=== PATIENT | male | born 1960 | race Hispanic/Latino ===

== ENCOUNTER 2019-02-14 00:31 | Inpatient (IN) | payer BC, OTHER ==
[2019-02-14] MEDS ORDERED: Nitroglycerin 0.4 MG TAB 1 EACH ONE (00:51)
[2019-02-14 01:08] LABS: #Basophils 0.2 thou/uL (0.0-0.2); #Eosinphils 0.1 thou/uL (0.0-0.7); #Monocytes 0.8 thou/uL (0.11-0.59); #Neutrophils 4.1 thou/uL (1.40-6.50); %Basophils 2.1 % (0.0-1.0); %Eosinophils 1.3 % (0.0-10.0); %Lymphocytes 36.9 % (21.0-51.0); %Monocytes 9.6 % (0.0-10.0); %Neutrophils 50.1 % (42.0-75.0); Hemoglobin 15.1 g/dL (14.0-18.0); Mean Corpuscular HGB CONC 34.1 g/dL (32.0-36.0); Mean Corpuscular Hemoglobin 33.4 pg (27.0-31.0); Mean Platelet Volume 7.6 fL (7.4-10.4); Platelet Count 235 thou/uL (130-400); Red Blood Cell (RBC) Count 4.52 mill/uL (4.70-6.10); White Blood Cell (WBC) Count 8.1 thou/uL (4.8-10.8)
[2019-02-14] MEDS ORDERED: Aspirin 325 MG TAB ONE (01:14)
[2019-02-14 02:02] LABS: Albumin 4.5 g/dL (3.5-5.0)
[2019-02-14 02:03] LABS: Chloride 103 mmol/L (98-107); Potassium 3.5 mmol/L (3.5-5.1); Sodium 140 mmol/L (136-145)
[2019-02-14 02:04] LABS: Calcium 9.9 mg/dL (7.8-10.44); Globulin 3.2 g/dL (2.4-3.5); Glucose 146 mg/dL (70-105); Protein, Total 7.7 g/dL (6.0-8.3)
[2019-02-14 02:06] LABS: Anion Gap 15 mmol/L (10-20); Bilirubin, Total 0.5 mg/dL (0.2-1.2); Carbon Dioxide 26 mmol/L (22-29)
[2019-02-14 02:07] LABS: Alkaline Phosphatase 90 U/L (40-150)
[2019-02-14 02:08] LABS: Calc. Creatinine Clearance 0 mL/min (70-130); Estimated GFR-MDRD 78
[2019-02-14 02:09] LABS: AST (SGOT) 38 U/L (5-34); BUN (Urea Nitrogen) 18 mg/dL (8.4-25.7)
[2019-02-14 02:10] LABS: ALT (SGPT) 84 U/L (8-55); CK (CPK) 222 U/L (30-200); Lipase 74 U/L (8-78)
[2019-02-14] MEDS ORDERED: Nitroglycerin 2% Ointment 1 INCH/1 GM Packet ONE (02:10)
[2019-02-14] MEDS ORDERED: Acetaminophen 325 MG TAB PO PRN (03:22)
[2019-02-14] MEDS ORDERED: Ondansetron ODT 4 MG TAB PO PRN (03:22)
[2019-02-14] MEDS ORDERED: Ondansetron PF 4 MG/2 ML Vial IVP PRN (03:22)
[2019-02-14 05:20] LABS: #Basophils 0.1 thou/uL (0.0-0.2); #Eosinphils 0.2 thou/uL (0.0-0.7); #Lymphocytes 2.9 thou/uL (1.20-3.40); #Monocytes 0.7 thou/uL (0.11-0.59); #Neutrophils 3.2 thou/uL (1.40-6.50); %Eosinophils 2.8 % (0.0-10.0); %Lymphocytes 40.7 % (21.0-51.0); %Monocytes 10.4 % (0.0-10.0); %Neutrophils 45.2 % (42.0-75.0); Hemoglobin 13.1 g/dL (14.0-18.0); Mean Corpuscular HGB CONC 33.2 g/dL (32.0-36.0); Mean Corpuscular Hemoglobin 33.2 pg (27.0-31.0); Mean Platelet Volume 7.8 fL (7.4-10.4); Platelet Count 196 thou/uL (130-400); RBC Distribution Width 11.1 % (11.5-14.5); Red Blood Cell (RBC) Count 3.95 mill/uL (4.70-6.10); White Blood Cell (WBC) Count 7.1 thou/uL (4.8-10.8)
[2019-02-14 05:23] LABS: Anion Gap 10 mmol/L (10-20); BUN (Urea Nitrogen) 15 mg/dL (8.4-25.7); Calc. Creatinine Clearance 106 mL/min (70-130); Calcium 9.3 mg/dL (7.8-10.44); Carbon Dioxide 27 mmol/L (22-29); Chloride 106 mmol/L (98-107); Estimated GFR-MDRD Greater than 90; Glucose 86 mg/dL (70-105); Potassium 3.8 mmol/L (3.5-5.1); Sodium 139 mmol/L (136-145)
[2019-02-14 05:59] LABS: CKMB 5.9 ng/mL (0-6.6)
[2019-02-14] MEDS ORDERED: Nitroglycerin 0.4 MG TAB (25 Tab Bottle) PO PRN (06:32)
[2019-02-14] MEDS ORDERED: Enoxaparin Sodium 60 MG/0.6 ML SYRINGE SC SCH (06:45)
[2019-02-14] MEDS: Nitroglycerin 2% Ointment 1 INCH/1 GM Packet TOP SCH ×3 (07:00→21:45)
--- NOTE | 2019-02-14 07:25 | HP ---
PRIMARY CARE PHYSICIAN: Dr. Patel. TIME OF EVALUATION: 3:15 a.m. CODE STATUS: Full code. CHIEF COMPLAINT: Chest pain. HISTORY OF PRESENT ILLNESS: This is a 58-year-old male patient with no significant past medical history, who came to the hospital after having chest pain that was in the middle of the chest, reported as severe with no clear triggers, no alleviating factors. The symptoms started earlier in the evening with radiation to the left arm. This is the first time the patient has this problem. The patient was sitting when the pain started associated with diaphoresis. REVIEW OF SYSTEMS: CONSTITUTIONAL: No fever, chills, or generalized weakness. RESPIRATORY: No cough, sputum production, or shortness of breath. CARDIOVASCULAR: The patient had chest pain. No palpitation. GASTROINTESTINAL: No nausea. No vomiting, diarrhea, or abdominal pain. ORDER DETAILER: No dizziness, headache, or feeling lightheaded. GENITOURINARY: No burning on urination. EXTREMITIES: No leg swelling. All other systems were reviewed and negative except for the findings mentioned above. PAST MEDICAL HISTORY: Negative. PAST SURGICAL HISTORY: Negative. PSYCHIATRIC HISTORY: No previous psych history. SOCIAL HISTORY: The patient drinks socially twice a month. No drug use. No smoking history. FAMILY HISTORY: Mother had diabetes. Father had heart problems. KNOWN ALLERGIES: No known drug allergies. REPORTED MEDICATIONS: None. PHYSICAL EXAMINATION: VITAL SIGNS: On presentation, blood pressure 184/113, heart rate was 78, respiratory rate was 16, and temperature 98.4. The blood pressure came down to 158/100 with heart rate 78 and respiratory rate was 15. GENERAL APPEARANCE: The patient is alert, oriented, not in acute distress. HEENT: Eyes, normal conjunctivae. Moist oral mucosa. Anicteric. No JVD. RESPIRATORY: Bilateral air entry. No rales. No wheezes. Symmetric expansion. CARDIOVASCULAR: Normal rate. Regular rhythm. No murmurs. No gallop. No edema. ABDOMEN: Soft. Normal bowel sounds. MUSCULOSKELETAL: Baseline range of motion and strength. No tenderness. SKIN: Warm, intact. No pallor. No rash. No redness. Peripheral pulses are present. Capillary refill seems to be intact. NEURO: No evidence of any new focal weakness. Baseline speech. Cranial nerves seems to be intact. PSYCH: The patient is in good mood. No anxiety. Optimal judgment. IMAGING STUDIES: EKG was reviewed. The patient has a normal sinus rhythm with a rate of 66 with HI 146, QRS 86, QT corrected 404. Chest x-ray was reviewed by myself, the patient has a non remarkable chest x-ray. No cardiopulmonary process, no cardiomegaly seen. LABORATORY DATA: Reviewed. The patient has white count 9.1, hemoglobin 15.1, MCV 98, and platelet count 235. Chemistry; sodium 140, potassium 3.5, chloride 103, carbon dioxide 26, anion gap 15, BUN 18, creatinine 0.98, GFR 78, glucose 146, calcium 9.9, and total bilirubin 0.5. LFTs were negative. CK 222. Troponin, initial one was negative and the second one 0.766. Serum total protein 7.7, albumin 4.5, globulin 3.2, and lipase 74. ASSESSMENT AND PLAN: The patient will be placed in the hospital with following medical problems; 1. Acute coronary syndrome, presenting with non-ST segment elevation myocardial infarction. The patient has typical chest pain plus troponin that has increased from negative to 0.766 in the patient with no significant past medical history of coronary artery disease or any other medical problems. We will consult Cardiology, cannot start beta blockers since heart rate is being in the 40s and 50s. The patient received aspirin. We will hold on Lovenox due to possible procedure from Cardiology early this morning. 2. Uncontrolled hypertension. The patient presented with very high blood pressure; however, this has come down to normal. We will monitor, could be related to underlying acute myocardial infarction, unclear if the patient's initial trigger for myocardial infarction was high blood pressure because there is no report of any medical problems. We will follow up, we will follow Cardiology recommendations. 3. Acute hyperglycemia on presentation with blood sugar of 146. This has resolved, likely secondary to acute physical distress with myocardial infarction. We will monitor. No need for any acute intervention at this point. 4. Deep venous thrombosis prophylaxis. 5. Risk assessment, high risk due to acute myocardial infarction. Job ID: [id number]
[2019-02-14 07:45] LABS: Hemoglobin A1c 5.2 % (4.0-6.0)
--- NOTE | 2019-02-14 08:40 | RAD ---
CHEST 1 VIEW: INDICATION: Chest pain. COMPARISON: None. FINDINGS: Lungs are clear. Heart size is normal. No acute osseous abnormality is evident. IMPRESSION: No acute cardiopulmonary abnormality. POS: BH
[2019-02-14] MEDS ORDERED: Aspirin 325 MG TAB PO SCH (09:00)
[2019-02-14] MEDS ORDERED: Enoxaparin Sodium 40 MG/0.4 ML SYRINGE SC SCH ×2 (09:00→18:00)
[2019-02-14] MEDS ORDERED: Atorvastatin Calcium 40 MG TAB PO SCH ×3 (09:30→21:00)
[2019-02-14] MEDS ORDERED: Nitroglycerin 4.9 GM Bottle ONE (09:45)
[2019-02-14] MEDS ORDERED: Midazolam HCl 2 mg/2 ml Vial ONE (09:46)
[2019-02-14] MEDS ORDERED: Nitroglycerin 50 MG/250 ML BOT 250 ML ONE (09:47)
[2019-02-14] MEDS ORDERED: Heparin 10,000 UNITS/1 ML VIAL ONE (10:24)
[2019-02-14] MEDS ORDERED: TICAGRELOR 90 MG TABLET ONE ×2 (10:25)
--- NOTE | 2019-02-14 10:52 | CON ---
DATE OF CONSULTATION: HISTORY OF PRESENT ILLNESS: The patient is a 58-year-old gentleman who presented with left-sided chest discomfort. The patient has no previous cardiac history. He states for the past several days, he has a left-sided chest pain that radiates down his left arm. The patient stated that it was associated with dyspnea, but not diaphoresis. The patient only has a past history of tobacco abuse and a family history of coronary artery disease. PAST MEDICAL HISTORY: None. PAST SURGICAL HISTORY: None. SOCIAL HISTORY: He is a former smoker. ALLERGIES: NO KNOWN DRUG ALLERGIES. FAMILY HISTORY: There is a strong family history of coronary artery disease. REVIEW OF SYSTEMS: Ten-point system otherwise unremarkable. PHYSICAL EXAMINATION: GENERAL: Well-developed gentleman, in no acute distress. VITAL SIGNS: Blood pressure 159/93. NECK: Showed no jugular venous distention. LUNGS: Clear to auscultation. HEART: Regular rate and rhythm. Normal S1, S2. No murmurs. ABDOMEN: Nondistended. EXTREMITIES: Show no edema. LABORATORY RESULTS: Sodium 139, potassium 3.8, chloride 106, bicarbonate 27, BUN 15, creatinine 0.77, glucose is 86. Troponin was 0.835. His white blood cell count is 7.1, hemoglobin 13.1, hematocrit 39.5, and his platelets are 196. EKG revealed normal sinus rhythm, normal ECG. IMPRESSION: 1. Non-Q-wave myocardial infarction. 2. History of tobacco abuse. This gentleman presents with a non-Q-wave myocardial infarction and recommended that he proceed directly with a cardiac catheterization, evaluate the extent of his coronary artery disease, the risks involved in cardiac catheterization including PR, bleeding, stroke, cardiac arrhythmia, and cardiac and explained to the patient. The patient understands these risk and wished to proceed. PLAN: Proceed with cardiac catheterization. Please call my office. Job ID: [id number]
[2019-02-14] MEDS ORDERED: Acetaminophen/Codeine 30-300mg Tablet PO PRN ×2 (11:12)
[2019-02-14] MEDS ORDERED: Nitroglycerin 0.4 MG TAB (25 Tab Bottle) SL PRN (11:12)
[2019-02-14] MEDS ORDERED: Sodium Chloride 0.9% 200 ML IV PRN (11:12)
[2019-02-14] MEDS ORDERED: Communication Order-Pharmacy FS SCH (12:14)
[2019-02-14] MEDS ORDERED: Heparin 10,000 UNITS/ 10 ML VIAL SLOW IVP SCH (12:15)
--- NOTE | 2019-02-14 12:58 | CON ---
DATE OF CONSULTATION: HISTORY OF PRESENT ILLNESS: This is a 58-year-old gentleman, who works for the [employer], preparing oxygen equipment. He presented to the emergency room early this morning with chest pain and a slight troponin bump. He had resolution of his discomfort and was found to have a slight troponin bump. He underwent cardiac catheterization today showing a high-grade LAD lesion involving a diagonal as well as disease in the ostium of the circ with a relatively normal right coronary artery. 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 PAST MEDICAL HISTORY: Positive for mild hypertension, untreated, mild dyslipidemia, untreated, and followed by Dr. Patel. He smoked up until about 8 years ago, but very rarely and never up to a pack a day. FAMILY HISTORY: Positive for father of heart disease in his 60s and a mother who had a stroke. PAST SURGICAL HISTORY: Negative. PAST MEDICAL HISTORY: Negative. SOCIAL HISTORY: The patient is and employed as noted above. PHYSICAL EXAMINATION: GENERAL: He is alert and cooperative gentleman. VITAL SIGNS: Height 5 feet 6 inches, weight 161. NECK: No carotid bruits. LUNGS: Clear to auscultation. CARDIAC: Regular rate and rhythm. No murmurs. ABDOMEN: Soft and nontender. No aneurysm. EXTREMITIES: Palpable pedal pulses bilaterally as well as a left radial pulse in a nondominant arm with a good plethysmography waveform with occlusion of his left radial. PLAN: At this time is for a bypass grafting to the LAD, diagonal, obtuse marginal, and informed consent has been obtained with the plan for LOPEZ to the LAD, radial to the diagonal and saphenous vein to the OM. Job ID: [id number]
[2019-02-14 13:43] LABS: Hemoglobin 14.3 g/dL (14.0-18.0); Platelet Count 207 thou/uL (130-400)
[2019-02-14 14:05] LABS: PTT 125.8 SEC (22.9-36.1)
[2019-02-14 16:37] LABS: Troponin I 0.488 ng/mL (< 0.028)
[2019-02-14] MEDS ORDERED: Iopamidol 370 76% 100 ML VIAL ONE (17:14)
[2019-02-14] MEDS: Carvedilol 3.125 MG TAB PO SCH ×2 (17:43→17:44)
[2019-02-14] MEDS: Aspirin 325 mg Enteric Coated Tablet PO SCH (17:52)
[2019-02-14] MEDS ORDERED: Heparin 25,000 units/D5W 500 ML IVPB SCH (18:00)
[2019-02-15] MEDS: Nitroglycerin 2% Ointment 1 INCH/1 GM Packet TOP SCH (05:49)
[2019-02-15] MEDS: Carvedilol 3.125 MG TAB PO SCH (05:49)
[2019-02-15] MEDS ORDERED: Albumin 5% 500 ML ONE (06:04)
[2019-02-15] MEDS ORDERED: Dexamethasone 4 mg/ml Vial ONE (06:27)
[2019-02-15] MEDS ORDERED: Bupivacaine HCl 0.5%/Epinephrine 1:200,000/PF 30 ml Vial ONE (06:27)
[2019-02-15] MEDS ORDERED: Heparin 10,000 UNITS/1 ML VIAL 30,000 UNITS in Sodium Chloride 0.9% 1,000 ML FS SCH (07:00)
[2019-02-15] MEDS ORDERED: Midazolam HCl 5 mg/5 ml Vial ONE (07:16)
[2019-02-15] MEDS ORDERED: Fentanyl 250 MCG/5 ML VIAL ONE ×2 (07:16)
[2019-02-15] MEDS ORDERED: Calcium Chloride 1 GM/10 ML Abboject SYRINGE ONE (09:22)
[2019-02-15] MEDS ORDERED: PHENYLEPHRINE-NS 100 MCG/ML 10 ML SYRINGE ONE ×2 (09:22→09:52)
[2019-02-15] MEDS ORDERED: Aminocaproic Acid 5 GM/20 ML VIAL ONE (09:22)
[2019-02-15] MEDS ORDERED: Sodium Bicarb 50 MEQ/50 ML VIAL ONE (09:22)
[2019-02-15] MEDS ORDERED: Lidocaine 2% PF 100 mg/5 ml Syringe ONE (09:22)
[2019-02-15] MEDS ORDERED: Thrombin 5000 UNITS/5 ML VIAL ONE (09:22)
[2019-02-15] MEDS ORDERED: Potassium Chloride 60 MEQ/30 ML VIAL ONE (09:22)
[2019-02-15] MEDS ORDERED: Rocuronium Bromide 10 MG/ML (10ML VIAL) ONE (09:22)
[2019-02-15] MEDS ORDERED: Heparin 30,000 units/30 ml VIAL ONE (09:22)
[2019-02-15] MEDS ORDERED: ePHEDrine 50 MG/ML VIAL ONE (09:22)
[2019-02-15] MEDS ORDERED: Heparin 5,000 UNITS/ML VIAL ONE (09:22)
[2019-02-15] MEDS ORDERED: Magnesium 5 GM/10 ML VIAL ONE (09:22)
[2019-02-15] MEDS ORDERED: Papaverine 60 MG/2 ML VIAL ONE (09:22)
[2019-02-15] MEDS ORDERED: Protamine Sulfate 250 MG/25 ML VIAL ONE (09:22)
[2019-02-15] MEDS ORDERED: Cardioplegic Soln 1,000 ML BAG ONE (09:22)
[2019-02-15] MEDS ORDERED: PROPOFOL 200 MG/20 ML VIAL ONE (09:22)
[2019-02-15] MEDS ORDERED: hydrALAZINE 20 MG/ML VIAL SLOW IVP PRN (11:35)
[2019-02-15] MEDS ORDERED: Bisacodyl 5 MG TAB PO PRN (11:35)
[2019-02-15] MEDS ORDERED: Mag-Al 1200 mg/1200 mg/30 ML UDCUP PO PRN (11:35)
[2019-02-15] MEDS ORDERED: DOPamine 400 MG/D5W 250 ML 250 ML IVPB PRN (11:35)
[2019-02-15] MEDS ORDERED: Morphine 2 MG/ML SYRINGE SLOW IVP PRN (11:35)
[2019-02-15] MEDS ORDERED: Nitroglycerin 50 MG/250 ML BOT 250 ML IVPB PRN (11:35)
[2019-02-15] MEDS ORDERED: Ondansetron PF 4 MG/2 ML Vial IVP PRN (11:35)
[2019-02-15] MEDS ORDERED: Norepinephrine 8 MG/0.9% NS 250 ML IVPB PRN (11:35)
[2019-02-15] MEDS ORDERED: Bisacodyl 10 MG SUPP PR PRN (11:35)
[2019-02-15] MEDS ORDERED: Hetastarch 6% 500 ML 500 ML IVPB PRN (11:35)
[2019-02-15] MEDS ORDERED: Acetaminophen 325 MG TAB PO PRN (11:35)
[2019-02-15] MEDS ORDERED: Guaifenesin DM 100-10/5 ML UDCUP PO PRN (11:35)
[2019-02-15] MEDS ORDERED: Post-Op Insulin Drip Protocol IVPB ONE (11:35)
[2019-02-15] MEDS ORDERED: Norepinephrine 8 MG/0.9% NS 250 ML ONE (11:41)
[2019-02-15 12:02] LABS: #Basophils 0.1 thou/uL (0.0-0.2); #Eosinphils 0.1 thou/uL (0.0-0.7); #Lymphocytes 1.5 thou/uL (1.20-3.40); #Monocytes 0.6 thou/uL (0.11-0.59); #Neutrophils 8.5 thou/uL (1.40-6.50); %Basophils 0.7 % (0.0-1.0); %Eosinophils 1.1 % (0.0-10.0); %Lymphocytes 13.8 % (21.0-51.0); %Monocytes 5.4 % (0.0-10.0); %Neutrophils 79.1 % (42.0-75.0); Hemoglobin 13.2 g/dL (14.0-18.0); Mean Corpuscular Hemoglobin 33.3 pg (27.0-31.0); Mean Platelet Volume 7.5 fL (7.4-10.4); Platelet Count 152 thou/uL (130-400); RBC Distribution Width 11.3 % (11.5-14.5); Red Blood Cell (RBC) Count 3.98 mill/uL (4.70-6.10); White Blood Cell (WBC) Count 10.7 thou/uL (4.8-10.8)
[2019-02-15] MEDS ORDERED: HUMULIN R 100 UNITS in Sodium Chloride 0.9% 100 ML IVPB SCH (12:02)
[2019-02-15] MEDS ORDERED: Dextrose 5% in Water 1,000 ML IV PRN (12:02)
[2019-02-15] MEDS ORDERED: Dextrose 50% Abboject 50 ML SYRINGE SLOW IVP PRN (12:02)
[2019-02-15 12:10] LABS: INR-International Normal Ratio 1.4; PTT 38.7 SEC (22.9-36.1); Prothrombin Time 17.3 SEC (12.0-14.7)
--- NOTE | 2019-02-15 12:11 | RAD ---
CHEST ONE VIEW: History: Post op open heart. Comparison: 02-14-19 FINDINGS: Recent post underlying sternotomy with chest tubes in place. Endotracheal tube and right central line in place. Minimal increased markings in the infrahilar regions, more so on the left, probably some m ild subsegmental atelectasis. No significant pneumothorax. IMPRESSION: Recent post op midline sternotomy changes with mild increased markings in the left base, probably sub segmental atelectasis. Continued short term follow up. POS: Erin
[2019-02-15 12:25] LABS: Anion Gap 10 mmol/L (10-20); BUN (Urea Nitrogen) 9 mg/dL (8.4-25.7); Calc. Creatinine Clearance 127 mL/min (70-130); Calcium 7.2 mg/dL (7.8-10.44); Carbon Dioxide 22 mmol/L (22-29); Chloride 112 mmol/L (98-107); Estimated GFR-MDRD Greater than 90; Glucose 131 mg/dL (70-105); Potassium 3.9 mmol/L (3.5-5.1); Sodium 140 mmol/L (136-145)
[2019-02-15] MEDS: Sodium Chloride 0.9% 1,000 ML IV SCH ×2 (12:27→21:52)
[2019-02-15 12:31] LABS: Actual Bicarbonate (HCO3a) 19.7 mEq/L (22-28); Base Excess (BEa) -4.9 mEq/L (-2.0 to +3.0); CO2 Tension 35.5 mmHg (35.0-45.0); Calcium, Ionized 1.04 mmol/L (1.12-1.30); Carboxyhemoglobin (COHb) 0.8 gm% (0.0-3.0); Hemoglobin (Hb) 13.6 g/dL (14.0-18.0); O2 Tension (PaO2) 147.6 mmHg (> 80.0); Potassium - ABG Lab 3.75 mmol/L (3.70-5.30); pH, Arterial 7.36 (7.35-7.45)
[2019-02-15 12:32] LABS: ALV-art Gradient 164.525 (0-20); Puncture Site ALINE
[2019-02-15] MEDS: Ketorolac Tromethamine 30 MG/ML VIAL IVP SCH ×3 (12:33→23:39)
[2019-02-15] MEDS: Insulin Regular 300 UNITS/3 ML VIAL SC PRN ×3 (12:38→21:52)
--- NOTE | 2019-02-15 13:04 | OP ---
DATE OF PROCEDURE: 02/15/2019 PREOPERATIVE DIAGNOSIS: Coronary artery disease, status post [id number] myocardial infarction. PROCEDURE PERFORMED: Coronary artery bypass graft x3, left internal mammary artery to 1.25 mm LAD, saphenous vein graft to a calcified diseased 1.5 mm diagonal, radial artery, good quality to a 1.5 mm OM. FOOT WORKER: Raleigh Berkowitz MD. TRANSFUSION: None. DESCRIPTION OF PROCEDURE: After adequate anesthesia had been obtained, the patient was prepped and draped. I harvested the left radial artery after ensuring good collateral flow while Dr. Berkowitz harvested a segment of saphenous vein from the left thigh. Following closure of the left arm incision, attention was turned to the median sternotomy, which was performed and the left internal mammary artery was harvested, entering the left pleura in the process. After heparinization, the mammary was divided distally and passed posterior to a very small remnant of thymus gland and treated with intraluminal papaverine. Aorta and right atrium were cannulated. Cardiopulmonary bypass was begun. Following this, vessels were inspected for grafting. The aorta was crossclamped and a liter of cold blood cardioplegia given through the aortic root. Following this, the three distal anastomosis were completed. The cross-clamp was removed. Partial occluding clamp placed in the vein graft was anastomosed to the aortic root and to its richardson. The radial artery graft was placed. The cross-clamp was released and a single suture was required in the distal diagonal anastomosis. The patient was then weaned from cardiopulmonary bypass. Cannula was removed and protamine given systemically while a 3-0 Prolene suture was used to reinforce the aortic cannulation site. Additional suture was required and the proximal vein anastomosed on the aorta. Following completion of this, mediastinal and left pleural drains were placed and the sternum was then reapproximated with #7 interrupted wire using vancomycin paste on the sternal edges, platelet rich blood, and platelet poor plasma. Subcutaneous tissue and skin were closed in layers. Job ID: [id number]
[2019-02-15] MEDS: CEFAZOLIN 2 GM in Premix Bag 1 BAG IVPB SCH ×2 (13:41→21:51)
[2019-02-15] MEDS: Potassium Chloride 20 MEQ/100 ML PREMIX BAG IVPB PRN (15:42)
[2019-02-15 17:14] LABS: Actual Bicarbonate (HCO3a) 20.6 mEq/L (22-28); CO2 Tension 40.5 mmHg (35.0-45.0); Calcium, Ionized 0.99 mmol/L (1.12-1.30); Carboxyhemoglobin (COHb) 0.7 gm% (0.0-3.0); Hemoglobin (Hb) 12.1 g/dL (14.0-18.0); O2 Tension (PaO2) 149.1 mmHg (> 80.0); Potassium - ABG Lab 3.94 mmol/L (3.70-5.30); pH, Arterial 7.33 (7.35-7.45)
[2019-02-15 17:15] LABS: ALV-art Gradient 85.475 (0-20); Puncture Site ALINE
[2019-02-15 17:25] LABS: Potassium 4.1 mmol/L (3.5-5.1)
[2019-02-15] MEDS: Aspirin 325 mg Enteric Coated Tablet PO SCH (20:20)
[2019-02-15] MEDS: Famotidine/PF 20 mg/2ml Vial SLOW IVP SCH (20:28)
[2019-02-15] MEDS: Fentanyl 100 MCG/2 ML VIAL SLOW IVP PRN (20:29)
[2019-02-15] MEDS ORDERED: Atorvastatin Calcium 20 MG TAB PO SCH (21:00)
[2019-02-16] MEDS: Fentanyl 100 MCG/2 ML VIAL SLOW IVP PRN ×5 (00:12→16:26)
[2019-02-16] MEDS: Insulin Regular 300 UNITS/3 ML VIAL SC PRN (01:16)
[2019-02-16 05:20] LABS: #Lymphocytes 1.5 thou/uL (1.20-3.40); #Monocytes 0.8 thou/uL (0.11-0.59); #Neutrophils 6.3 thou/uL (1.40-6.50); %Basophils 0.1 % (0.0-1.0); %Eosinophils 0.1 % (0.0-10.0); %Lymphocytes 17.2 % (21.0-51.0); %Monocytes 8.9 % (0.0-10.0); %Neutrophils 73.6 % (42.0-75.0); Hemoglobin 10.3 g/dL (14.0-18.0); Mean Corpuscular HGB CONC 33.7 g/dL (32.0-36.0); Mean Corpuscular Hemoglobin 34.1 pg (27.0-31.0); Mean Platelet Volume 7.8 fL (7.4-10.4); Platelet Count 137 thou/uL (130-400); RBC Distribution Width 11.2 % (11.5-14.5); Red Blood Cell (RBC) Count 3.02 mill/uL (4.70-6.10); White Blood Cell (WBC) Count 8.5 thou/uL (4.8-10.8)
[2019-02-16 05:44] LABS: Anion Gap 9 mmol/L (10-20); BUN (Urea Nitrogen) 8 mg/dL (8.4-25.7); Calc. Creatinine Clearance 138 mL/min (70-130); Calcium 7.5 mg/dL (7.8-10.44); Carbon Dioxide 22 mmol/L (22-29); Chloride 111 mmol/L (98-107); Estimated GFR-MDRD Greater than 90; Glucose 113 mg/dL (70-105); Potassium 3.7 mmol/L (3.5-5.1); Sodium 138 mmol/L (136-145)
[2019-02-16] MEDS: Ketorolac Tromethamine 30 MG/ML VIAL IVP SCH ×3 (05:49→17:34)
[2019-02-16] MEDS: CEFAZOLIN 2 GM in Premix Bag 1 BAG IVPB SCH (06:00)
[2019-02-16] MEDS: Potassium Chloride 20 MEQ/100 ML PREMIX BAG IVPB PRN (06:43)
--- NOTE | 2019-02-16 07:46 | RAD ---
CHEST 1 VIEW: INDICATION: Status post open heart surgery. COMPARISON: Prior exam dated 02/15/2019 at 11:29 a.m. FINDINGS: The patient has been extubated. The midline mediastinal drain, left-sided thoracostomy tube, and rig ht subclavian central venous catheter are unchanged. Cardiomegaly has slightly worsened, but the pat ient is hypoventilated. There is mild left basilar atelectasis. No pneumothorax is evident. IMPRESSION: 1. Interval extubation. Tubes and lines otherwise stable. 2. Hypoventilation accentuates the cardiac silhouette and causing mild left basilar atelectasis. No pneumothorax is evident. POS: BH
[2019-02-16] MEDS: Aspirin 325 MG TAB PO SCH (08:52)
[2019-02-16] MEDS: Clopidogrel Bisulfate 75 MG TAB PO SCH (08:52)
[2019-02-16] MEDS: Famotidine/PF 20 mg/2ml Vial SLOW IVP SCH ×2 (08:53→21:04)
[2019-02-16] MEDS ORDERED: Atorvastatin Calcium 20 MG TAB PO SCH (09:08)
[2019-02-16] MEDS: HYDROcodone/Acetaminophen 5/325 mg Tablet PO PRN ×2 (14:07→21:03)
[2019-02-16] MEDS: Atorvastatin Calcium 40 MG TAB PO SCH (21:05)
--- NOTE | 2019-02-16 22:50 | PDOC.PN ---
- Subjective Encounter Start Date: 02/16/19 Encounter Start Time: 14:00 Patient seen and examined for NSTEMI s/p CABG. No CP. No new complaints. No overnight events - Objective Resuscitation Status - Order Detail: 02/14/19 03:22 Resuscitation Status Routine Resuscitation Status: FULL: Full Resuscitation MAR Reviewed: Yes Vital Signs & Weight: Vital Signs (12 hours) Temp Pulse Resp BP Pulse Ox 02/16/19 20:00 98.6 F 88 18 91/51 L 96 02/16/19 16:32 100 16 112/64 95 02/16/19 12:00 98.4 F Weight Weight 159 lb 4.8 oz Most Recent Monitor Data Heart Rate from ECG 95 NIBP 102/67 NIBP BP-Mean 78 Respiration from ECG 21 SpO2 96 I&O: 02/15/19 02/16/19 02/17/19 06:59 06:59 06:59 Intake Total 960 2731.3 1440 Output Total 650 1835 950 Balance 310 896.3 490 Result Diagrams: 02/16/19 04:40 02/16/19 04:40 Additional Labs: Accuchecks 02/15/19 02/15/19 10:14 09:49 POC Glucose 128 H 131 H EKG Reviewed by me: Yes (Tele SR) Phys Exam - Physical Examination Constitutional: NAD Respiratory: no wheezing, no rhonchi Cardiovascular: RRR, no rub Gastrointestinal: soft, non-tender, positive bowel sounds Musculoskeletal: no edema Neurological: moves all 4 limbs Dx/Plan - Plan DVT proph w/SCDs 1. CP/NSTEMI 2. CAD s/p CABG 3. HLD PLAN: On ASA/Plavix Cont supportive care Cont Statins Will start Coreg/ACEI once BP improves Review of Systems - Review of Systems Respiratory: negative: Cough, Dry, Shortness of Breath, Hemoptysis, SOB with Excertion, Pleuritic Pain, Sputum, Wheezing Cardiovascular: negative: chest pain, palpitations, orthopnea, paroxysmal nocturnal dyspnea, edema, light headedness, other Gastrointestinal: negative: Nausea, Vomiting, Abdominal Pain, Diarrhea, Constipation, Melena, Hematochezia, Other - Medications/Allergies Allergies/Adverse Reactions: Allergies Allergy/AdvReac Type Severity Reaction Status Date / Time No Known Allergies Allergy Verified 02/14/19 03:12 Medications: Current Medications Acetaminophen (Tylenol) 650 mg PO Q6H PRN PRN Reason: Headache/Fever Or Mild Pain Hydrocodone Bitart/Acetaminophen ([place] 5/325) 1 tab PO Q4H PRN PRN Reason: Moderate Pain (4-6) Last Admin: 02/16/19 14:07 Dose: 1 tab Hydrocodone Bitart/Acetaminophen ([place] 5/325) 2 tab PO Q4H PRN PRN Reason: Severe Pain (7-10) Last Admin: 02/16/19 21:03 Dose: 2 tab Al Hydroxide/Mg Hydroxide (Maalox) 30 ml PO Q4H PRN PRN Reason: Indigestion Albuterol/Ipratropium (Duoneb) 3 ml NEB Q5PL-SY PRN PRN Reason: SHORTNESS OF BREATH Aspirin (Aspirin) 325 mg PO DAILY [facility] Last Admin: 02/16/19 08:52 Dose: 325 mg Atorvastatin Calcium (Lipitor) 40 mg PO HS [facility] Last Admin: 02/16/19 21:05 Dose: 40 mg Bisacodyl (Dulcolax) 10 mg PO Q12H PRN PRN Reason: Constipation Bisacodyl (Dulcolax) 10 mg [place] Q12H PRN PRN Reason: Constipation Clopidogrel Bisulfate (Plavix) 75 mg PO DAILY [facility] Last Admin: 02/16/19 08:52 Dose: 75 mg Famotidine (Pepcid) 20 mg SLOW IVP Q12HR [facility] Last Admin: 02/16/19 21:04 Dose: 20 mg Fentanyl (Sublimaze) 25 mcg SLOW IVP Q2H PRN PRN Reason: Moderate Pain (4-6) Stop: 02/17/19 11:23 Last Admin: 02/16/19 16:26 Dose: 25 mcg Fentanyl (Sublimaze) 50 mcg SLOW IVP Q2H PRN PRN Reason: Severe Pain (7-10) Stop: 02/17/19 11:23 Last Admin: 02/16/19 08:53 Dose: 50 mcg Guaifenesin/Dextromethorphan (Robitussin Dm) 15 ml PO Q4H PRN PRN Reason: Cough Hydralazine HCl (Apresoline) 10 mg SLOW IVP Q6H PRN PRN Reason: To Maintain SBP< 140mmHG Dopamine HCl/Dextrose (Dopamine/D5w) 250 mls @ 0 mls/hr IVPB PRN PRN; Protocol PRN Reason: To maintain SBP > 90 mmHG Norepinephrine Bitartrate (Levophed) 250 mls @ 0 mls/hr IVPB PRN PRN; Protocol PRN Reason: To maintain SBP > 90 mmHG Last Admin: 02/15/19 12:28 Dose: 250 mls Nicardipine HCl 25 mg/ Sodium (Chloride) 260 mls @ 0 mls/hr IVPB INF PRN; Protocol PRN Reason: To Maintain SBP< 140mmHG Nitroglycerin/Dextrose (Nitroglycerin 50 Mg/250 Ml Bot) 250 mls @ 0 mls/hr IVPB PRN PRN; Protocol PRN Reason: To Maintain SBP< 140mmHG Insulin Human Regular 100 (units/ Sodium Chloride) 101 mls @ 0 mls/hr IVPB INF [facility]; Protocol Ketorolac Tromethamine (Toradol) 15 mg IVP Q6HR [facility] Stop: 02/18/19 12:01 Last Admin: 02/16/19 17:34 Dose: 15 mg Morphine Sulfate (Morphine) 2 mg SLOW IVP Q15MIN PRN PRN Reason: Severe Pain (7-10) Ondansetron HCl (Zofran) 4 mg IVP Q6H PRN PRN Reason: Nausea/Vomiting Last Admin: 02/15/19 20:40 Dose: 4 mg Potassium Chloride (Kcl) 20 meq IVPB PRN PRN PRN Reason: K level </= 4.0 Last Admin: 02/16/19 06:43 Dose: 20 meq Sodium Chloride (Flush - Normal Saline) 10 ml IVF Q12HR [facility] Last Admin: 02/16/19 21:05 Dose: 10 ml Sodium Chloride (Flush - Normal Saline) 10 ml IVF PRN PRN PRN Reason: Saline Flush
[2019-02-17] MEDS: Ketorolac Tromethamine 30 MG/ML VIAL IVP SCH ×5 (00:03→23:40)
[2019-02-17] MEDS ORDERED: Polyethylene Glycol 3350 17 GM Packet PO PRN (06:42)
[2019-02-17 06:52] LABS: #Eosinphils 0.1 thou/uL (0.0-0.7); #Lymphocytes 1.4 thou/uL (1.20-3.40); #Monocytes 0.7 thou/uL (0.11-0.59); #Neutrophils 6.3 thou/uL (1.40-6.50); %Basophils 0.2 % (0.0-1.0); %Eosinophils 0.8 % (0.0-10.0); %Lymphocytes 16.4 % (21.0-51.0); %Monocytes 8.3 % (0.0-10.0); %Neutrophils 74.3 % (42.0-75.0); Hemoglobin 9.9 g/dL (14.0-18.0); Mean Corpuscular HGB CONC 33.9 g/dL (32.0-36.0); Mean Corpuscular Hemoglobin 34.2 pg (27.0-31.0); Mean Platelet Volume 8.3 fL (7.4-10.4); Platelet Count 121 thou/uL (130-400); RBC Distribution Width 11.2 % (11.5-14.5); White Blood Cell (WBC) Count 8.5 thou/uL (4.8-10.8)
[2019-02-17 07:08] LABS: Anion Gap 7 mmol/L (10-20); BUN (Urea Nitrogen) 9 mg/dL (8.4-25.7); Calc. Creatinine Clearance 135 mL/min (70-130); Calcium 8.1 mg/dL (7.8-10.44); Carbon Dioxide 27 mmol/L (22-29); Chloride 108 mmol/L (98-107); Estimated GFR-MDRD Greater than 90; Glucose 101 mg/dL (70-105); Potassium 3.9 mmol/L (3.5-5.1); Sodium 138 mmol/L (136-145)
[2019-02-17] MEDS: Famotidine/PF 20 mg/2ml Vial SLOW IVP SCH ×2 (08:15→21:16)
[2019-02-17] MEDS: Aspirin 325 MG TAB PO SCH (08:15)
[2019-02-17] MEDS: Clopidogrel Bisulfate 75 MG TAB PO SCH (08:15)
[2019-02-17] MEDS: Senokot S 8.6-50 MG TAB PO SCH ×2 (08:15→21:16)
--- NOTE | 2019-02-17 09:11 | RAD ---
PORTABLE CHEST: Date: 02/17/19 HISTORY: Postop CABG. COMPARISON: Prior day's exam. FINDINGS: Heart size appears borderline. Postop sternotomy change. Atelectatic changes seen in left base. Chest tubes and right subclavian line are all unchanged in position. IMPRESSION: Slight interval increase in the left lower lobe atelectasis. POS: [facility]
[2019-02-17] MEDS ORDERED: Metoprolol Tartrate 25 MG TAB PO SCH (11:15)
--- NOTE | 2019-02-17 16:08 | PDOC.CTH ---
Cardiology Progress Note - Subjective He is doing well. He is passing gas but no BM yet. - Objective Vital Signs Temp Pulse Resp BP Pulse Ox 02/17/19 11:55 97.8 F 93 20 110/63 96 02/17/19 07:45 96 02/17/19 07:33 98.4 F 84 20 122/65 94 L Weight 169 lb 02/16/19 02/17/19 02/18/19 06:59 06:59 06:59 Intake Total 2731.3 1920 Output Total 1835 1490 500 Balance 896.3 430 -500 - Physical Examination General/Neuro: alert & oriented x3, NAD Neck: no JVD present Lungs: CTA, unlabored respirations Heart: RRR Abdomen: NT/ND Extremities: + edema B (1+) - Telemetry Telemetry Rhythm: NSR - Labs Result Diagrams: 02/17/19 05:20 02/17/19 05:20 Troponin/CKMB CK-MB (CK-2) 5.9 ng/mL (0-6.6) 02/14/19 04:36 Troponin I 0.488 ng/mL (< 0.028) H* 02/14/19 15:49 - Assessment/Plan 1. Multivessel CAD 2. S/P CABG x 3. LOPEZ to LAD, free radial to OM, SVg to Diagonal PLAN: - Aspirin and statin for life. - Start PT today. - On BB, start ACEI in next few days if BP allows.
[2019-02-17] MEDS: HYDROcodone/Acetaminophen 5/325 mg Tablet PO PRN (16:44)
[2019-02-17] MEDS ORDERED: Clopidogrel Bisulfate 75 MG TAB ONE (17:11)
[2019-02-17] MEDS: Atorvastatin Calcium 40 MG TAB PO SCH (21:15)
[2019-02-17] MEDS: Metoprolol Tartrate 25 MG TAB PO SCH (21:16)
--- NOTE | 2019-02-17 22:22 | PDOC.PN ---
- Subjective Encounter Start Date: 02/17/19 Encounter Start Time: 09:45 Patient seen and examined for CAD. No CP. No BM. No new complaints. No overnight events - Objective Resuscitation Status - Order Detail: 02/14/19 03:22 Resuscitation Status Routine Resuscitation Status: FULL: Full Resuscitation MAR Reviewed: Yes Vital Signs & Weight: Vital Signs (12 hours) Temp Pulse Resp BP Pulse Ox 02/17/19 16:37 99.8 F H 88 20 137/77 95 02/17/19 11:55 97.8 F 93 20 110/63 96 Weight Weight 169 lb Most Recent Monitor Data Heart Rate from ECG 95 NIBP 102/67 NIBP BP-Mean 78 Respiration from ECG 21 SpO2 96 I&O: 02/16/19 02/17/19 02/18/19 06:59 06:59 06:59 Intake Total 2731.3 1920 1060 Output Total 1835 1490 1820 Balance 896.3 430 -760 Result Diagrams: 02/17/19 05:20 02/17/19 05:20 Additional Labs: Accuchecks 02/17/19 00:19 POC Glucose 111 H Phys Exam - Physical Examination Constitutional: NAD Respiratory: no wheezing, no rhonchi Cardiovascular: RRR, no rub Gastrointestinal: soft, non-tender, positive bowel sounds Musculoskeletal: no edema Neurological: moves all 4 limbs Dx/Plan - Plan DVT proph w/SCDs 1. CP/NSTEMI 2. CAD s/p CABG 3. HLD PLAN: On ASA/Plavix/Statins/Coreg Cont supportive care Will start ACEI once BP improves Review of Systems - Review of Systems Respiratory: negative: Cough, Dry, Shortness of Breath, Hemoptysis, SOB with Excertion, Pleuritic Pain, Sputum, Wheezing Cardiovascular: negative: chest pain, palpitations, orthopnea, paroxysmal nocturnal dyspnea, edema, light headedness, other Gastrointestinal: negative: Nausea, Vomiting, Abdominal Pain, Diarrhea, Constipation, Melena, Hematochezia, Other - Medications/Allergies Allergies/Adverse Reactions: Allergies Allergy/AdvReac Type Severity Reaction Status Date / Time No Known Allergies Allergy Verified 02/14/19 03:12 Medications: Current Medications Acetaminophen (Tylenol) 650 mg PO Q6H PRN PRN Reason: Headache/Fever Or Mild Pain Hydrocodone Bitart/Acetaminophen ([place] 5/325) 1 tab PO Q4H PRN PRN Reason: Moderate Pain (4-6) Last Admin: 02/17/19 16:44 Dose: 1 tab Hydrocodone Bitart/Acetaminophen ([place] 5/325) 2 tab PO Q4H PRN PRN Reason: Severe Pain (7-10) Last Admin: 02/16/19 21:03 Dose: 2 tab Al Hydroxide/Mg Hydroxide (Maalox) 30 ml PO Q4H PRN PRN Reason: Indigestion Albuterol/Ipratropium (Duoneb) 3 ml NEB [id number] PRN PRN Reason: SHORTNESS OF BREATH Aspirin (Aspirin) 325 mg PO DAILY [facility] Last Admin: 02/17/19 08:15 Dose: 325 mg Atorvastatin Calcium (Lipitor) 40 mg PO HS [facility] Last Admin: 02/17/19 21:15 Dose: 40 mg Bisacodyl (Dulcolax) 10 mg [place] Q12H PRN PRN Reason: Constipation Clopidogrel Bisulfate (Plavix) 75 mg PO DAILY [facility] Last Admin: 02/17/19 08:15 Dose: 75 mg Famotidine (Pepcid) 20 mg SLOW IVP Q12HR [facility] Last Admin: 02/17/19 21:16 Dose: 20 mg Guaifenesin/Dextromethorphan (Robitussin Dm) 15 ml PO Q4H PRN PRN Reason: Cough Hydralazine HCl (Apresoline) 10 mg SLOW IVP Q6H PRN PRN Reason: To Maintain SBP< 140mmHG Dopamine HCl/Dextrose (Dopamine/D5w) 250 mls @ 0 mls/hr IVPB PRN PRN; Protocol PRN Reason: To maintain SBP > 90 mmHG Nitroglycerin/Dextrose (Nitroglycerin 50 Mg/250 Ml Bot) 250 mls @ 0 mls/hr IVPB PRN PRN; Protocol PRN Reason: To Maintain SBP< 140mmHG Insulin Human Regular 100 (units/ Sodium Chloride) 101 mls @ 0 mls/hr IVPB INF [facility]; Protocol Ketorolac Tromethamine (Toradol) 15 mg IVP Q6HR [facility] Stop: 02/18/19 12:01 Last Admin: 02/17/19 17:39 Dose: 15 mg Metoprolol Tartrate (Lopressor) 12.5 mg PO BID [facility] Last Admin: 02/17/19 21:16 Dose: 12.5 mg Ondansetron HCl (Zofran) 4 mg IVP Q6H PRN PRN Reason: Nausea/Vomiting Last Admin: 02/15/19 20:40 Dose: 4 mg Polyethylene Glycol (Miralax) 17 gm PO DAILYPRN PRN PRN Reason: Constipation Potassium Chloride (Kcl) 20 meq IVPB PRN PRN PRN Reason: K level </= 4.0 Last Admin: 02/16/19 06:43 Dose: 20 meq Senna/Docusate Sodium (Senokot S) 1 tab PO BID [facility] Last Admin: 02/17/19 21:16 Dose: 1 tab Sodium Chloride (Flush - Normal Saline) 10 ml IVF Q12HR [facility] Last Admin: 02/17/19 21:17 Dose: 10 ml Sodium Chloride (Flush - Normal Saline) 10 ml IVF PRN PRN PRN Reason: Saline Flush Last Admin: 02/17/19 16:48 Dose: 10 ml
[2019-02-18] MEDS: Ketorolac Tromethamine 30 MG/ML VIAL IVP SCH ×2 (05:42→11:37)
[2019-02-18 06:07] LABS: #Eosinphils 0.2 thou/uL (0.0-0.7); #Lymphocytes 1.7 thou/uL (1.20-3.40); #Monocytes 0.7 thou/uL (0.11-0.59); #Neutrophils 5.4 thou/uL (1.40-6.50); %Basophils 0.5 % (0.0-1.0); %Eosinophils 1.9 % (0.0-10.0); %Lymphocytes 20.9 % (21.0-51.0); %Monocytes 8.6 % (0.0-10.0); %Neutrophils 68.1 % (42.0-75.0); Hemoglobin 9.9 g/dL (14.0-18.0); Mean Corpuscular HGB CONC 33.6 g/dL (32.0-36.0); Mean Corpuscular Hemoglobin 33.8 pg (27.0-31.0); Mean Platelet Volume 7.7 fL (7.4-10.4); Platelet Count 144 thou/uL (130-400); RBC Distribution Width 11.1 % (11.5-14.5); Red Blood Cell (RBC) Count 2.94 mill/uL (4.70-6.10)
[2019-02-18 06:27] LABS: Anion Gap 8 mmol/L (10-20); BUN (Urea Nitrogen) 11 mg/dL (8.4-25.7); Calc. Creatinine Clearance 139 mL/min (70-130); Calcium 8.2 mg/dL (7.8-10.44); Carbon Dioxide 27 mmol/L (22-29); Chloride 109 mmol/L (98-107); Estimated GFR-MDRD Greater than 90; Glucose 92 mg/dL (70-105); Potassium 3.7 mmol/L (3.5-5.1); Sodium 140 mmol/L (136-145)
[2019-02-18] MEDS: Clopidogrel Bisulfate 75 MG TAB PO SCH (08:45)
[2019-02-18] MEDS: Aspirin 325 MG TAB PO SCH (08:45)
[2019-02-18] MEDS: Metoprolol Tartrate 25 MG TAB PO SCH ×2 (08:46→20:40)
[2019-02-18] MEDS: Senokot S 8.6-50 MG TAB PO SCH ×2 (08:46→20:41)
[2019-02-18] MEDS: Famotidine/PF 20 mg/2ml Vial SLOW IVP SCH ×2 (08:47→20:40)
--- NOTE | 2019-02-18 09:58 | PRG ---
DATE OF SERVICE: 02/18/2019 SUBJECTIVE: The patient is seen and examined at the bedside. He is doing gradually better. His appetite is fair. He does not have much complaints to offer. He started his rehab today. He had bowel movement this morning. OBJECTIVE: VITAL SIGNS: Blood pressure is 108/63, pulse is 78, temperature is 98.8, respirations 16, and O2 saturation is 97% on room air. HEENT: His head is atraumatic and normocephalic. Eyes are PERRLA. Sclerae are nonicteric. Oral mucosa is moist. NECK: Supple. LUNGS: Breath sounds are diminished at the left base. His incision looks good in the midline of the chest. ABDOMEN: Soft, nontender, and nondistended. EXTREMITIES: No clubbing, cyanosis, or edema. NEUROLOGIC: He is alert and oriented x3. There is no any motor or sensory deficit present. Cranial nerves are intact. LABORATORY DATA: Labs showed white count of 8.0, hemoglobin 9.9, hematocrit 29.5, MCV 100, and platelet count 144. Sodium of 140, potassium 3.7, chloride 109, CO2 of 27, , glucose 92, and calcium 8.2. IMPRESSION: 1. Non-Q-wave myocardial infarction. 2. Three-vessel coronary artery disease, status post coronary artery bypass grafting. 3. Hyperlipidemia. PLAN: The patient is on aspirin, clopidogrel, metoprolol, blood pressure is running on the lower side. When it gets better, we will start him on VICKIE inhibitor. Continue PT, OT, cardiac rehabilitation. Job ID: [id number]
--- NOTE | 2019-02-18 17:13 | PDOC.CTH ---
Cardiology Progress Note - Subjective Doing well. Walking around without issues. He had 3 BMN's this morning. - Objective Vital Signs Temp Pulse Pulse Pulse Resp BP BP 02/18/19 15:14 98.9 F 83 16 02/18/19 14:09 89 92 137/75 119/66 02/18/19 11:29 78 16 02/18/19 08:48 92 89 132/76 137/75 02/18/19 07:39 02/18/19 07:27 98.8 F 78 16 BP BP Pulse Ox 02/18/19 15:14 118/66 98 02/18/19 14:09 02/18/19 11:29 136/69 100 02/18/19 08:48 02/18/19 07:39 97 02/18/19 07:27 108/63 97 Weight 166 lb 02/17/19 02/18/19 02/19/19 06:59 06:59 06:59 Intake Total 1920 1540 Output Total 1490 2520 Balance 430 -980 - Physical Examination General/Neuro: alert & oriented x3, NAD Neck: no JVD present Lungs: CTA, unlabored respirations Heart: RRR Abdomen: NT/ND Extremities: other: (no edema) - Telemetry Telemetry Rhythm: NSR - Labs Result Diagrams: 02/18/19 05:25 02/18/19 05:25 Troponin/CKMB CK-MB (CK-2) 5.9 ng/mL (0-6.6) 02/14/19 04:36 Troponin I 0.488 ng/mL (< 0.028) H* 02/14/19 15:49 - Assessment/Plan 1. Multivessel CAD 2. S/P CABG x 3. LOPEZ to LAD, free radial to OM, SVG to Diagonal PLAN: - Aspirin and statin for life. - Advance PT as tolerated. . - On BB, start ACEI tomorrow if BP allows.
[2019-02-18] MEDS: Atorvastatin Calcium 40 MG TAB PO SCH (20:40)
[2019-02-18] MEDS: HYDROcodone/Acetaminophen 5/325 mg Tablet PO PRN (20:41)
[2019-02-19 06:15] LABS: #Basophils 0.1 thou/uL (0.0-0.2); #Eosinphils 0.2 thou/uL (0.0-0.7); #Lymphocytes 1.4 thou/uL (1.20-3.40); #Monocytes 0.5 thou/uL (0.11-0.59); #Neutrophils 3.7 thou/uL (1.40-6.50); %Basophils 1.1 % (0.0-1.0); %Eosinophils 3.1 % (0.0-10.0); %Lymphocytes 23.5 % (21.0-51.0); %Monocytes 9.2 % (0.0-10.0); %Neutrophils 63.2 % (42.0-75.0); Hemoglobin 9.5 g/dL (14.0-18.0); Mean Corpuscular HGB CONC 34.7 g/dL (32.0-36.0); Mean Corpuscular Hemoglobin 34.3 pg (27.0-31.0); Mean Corpuscular Volume 98.9 fL (78.0-98.0); Mean Platelet Volume 7.5 fL (7.4-10.4); Platelet Count 177 thou/uL (130-400); RBC Distribution Width 11.1 % (11.5-14.5); Red Blood Cell (RBC) Count 2.78 mill/uL (4.70-6.10); White Blood Cell (WBC) Count 5.9 thou/uL (4.8-10.8)
[2019-02-19 06:37] LABS: Anion Gap 9 mmol/L (10-20); BUN (Urea Nitrogen) 11 mg/dL (8.4-25.7); Calc. Creatinine Clearance 134 mL/min (70-130); Calcium 8.4 mg/dL (7.8-10.44); Carbon Dioxide 27 mmol/L (22-29); Chloride 107 mmol/L (98-107); Estimated GFR-MDRD Greater than 90; Glucose 84 mg/dL (70-105); Potassium 3.6 mmol/L (3.5-5.1); Sodium 139 mmol/L (136-145)
[2019-02-19 07:37] VITALS: TEMP 98.9
--- NOTE | 2019-02-19 08:27 | DIS ---
DATE OF ADMISSION: 02/14/2019 DATE OF DISCHARGE: 02/19/2019 This is a 58-year-old gentleman, previously in good health on no medications, who presented with a non-Q-wave myocardial infarction. Cardiac catheterization was done followed by coronary artery bypass grafting to the LAD, diagonal, and obtuse marginal. His postoperative course was unremarkable with his hemoglobin stabilizing about 10 g. Low-dose beta-marcelle was added to his medical regimen and he will be discharged home on aspirin 81 a day, Plavix 75 a day for 1 month, metoprolol tartrate 12.5 b.i.d., and atorvastatin 40 at bedtime. Discharge and followup instructions were given. Job ID: [id number]
[2019-02-19] MEDS: Senokot S 8.6-50 MG TAB PO SCH (08:37)
[2019-02-19] MEDS: Metoprolol Tartrate 25 MG TAB PO SCH (08:38)
[2019-02-19] MEDS: Clopidogrel Bisulfate 75 MG TAB PO SCH (08:38)
[2019-02-19] MEDS ORDERED: Aspirin 81 mg Enteric Coated Tablet PO SCH (09:00)
[2019-02-19 14:05] VITALS: BP 132/71
[2019-02-19 16:53] LABS: Actual Bicarbonate (HCO3a) 18.6 mEq/L (22-28); Analyzer IN Cardio OR; Base Excess (BEa) -5.1 mEq/L (-2.0 to +3.0); CO2 Tension 30.5 mmHg (35.0-45.0); Calcium, Ionized 1.04 mmol/L (1.12-1.30); Carboxyhemoglobin (COHb) 0.3 gm% (0.0-3.0); Hemoglobin (Hb) 12.2 g/dL (14.0-18.0); O2 Tension (PaO2) 238.5 mmHg (> 80.0)
[2019-02-19 16:53] LABS: Actual Bicarbonate (HCO3a) 24.1 mEq/L (22-28); Analyzer IN Cardio OR; Base Excess (BEa) -1.5 mEq/L (-2.0 to +3.0); CO2 Tension 44.5 mmHg (35.0-45.0); Calcium, Ionized 0.96 mmol/L (1.12-1.30); Carboxyhemoglobin (COHb) 0.3 gm% (0.0-3.0); Hemoglobin (Hb) 9.3 g/dL (14.0-18.0); O2 Tension (PaO2) 386.9 mmHg (> 80.0); pH, Arterial 7.35 (7.35-7.45)
[2019-02-19 16:53] LABS: Actual Bicarbonate (HCO3v) 20 mEq/L (22-28); Analyzer IN Cardio OR; Base Excess -3.8 mEq/L (-2.0 to +3.0); Calcium, Ionized 1.13 mmol/L (1.16-1.32); Chloride (ABG LAB) 108 mmol/L (98-106); Hemoglobin (Hb) 13.7 g/dL (13.1-17.2); Potassium - ABG Lab 3.76 mmol/L (3.70-5.30); Sodium 138.6 mmol/L (133-146); pH (venous) 7.39 (7.32-7.43)
[2019-02-19 16:54] LABS: Actual Bicarbonate (HCO3a) 24.2 mEq/L (22-28); Analyzer IN Cardio OR; Base Excess (BEa) -2.1 mEq/L (-2.0 to +3.0); CO2 Tension 48.7 mmHg (35.0-45.0); Calcium, Ionized 0.98 mmol/L (1.12-1.30); Carboxyhemoglobin (COHb) 0.3 gm% (0.0-3.0); Hemoglobin (Hb) 9.7 g/dL (14.0-18.0); O2 Tension (PaO2) 355.3 mmHg (> 80.0); Potassium - ABG Lab 4.91 mmol/L (3.70-5.30); pH, Arterial 7.31 (7.35-7.45)
[2019-02-19 16:54] LABS: Actual Bicarbonate (HCO3a) 22.1 mEq/L (22-28); Analyzer IN Cardio OR; Base Excess (BEa) -2.4 mEq/L (-2.0 to +3.0); CO2 Tension 36.5 mmHg (35.0-45.0); Calcium, Ionized 1.03 mmol/L (1.12-1.30); Carboxyhemoglobin (COHb) 0.3 gm% (0.0-3.0); Hemoglobin (Hb) 9.1 g/dL (14.0-18.0); O2 Tension (PaO2) 180.2 mmHg (> 80.0); Potassium - ABG Lab 4.55 mmol/L (3.70-5.30)
[2019-02-19 16:54] LABS: Actual Bicarbonate (HCO3v) 24 mEq/L (22-28); Analyzer IN Cardio OR; Base Excess -2.3 mEq/L (-2.0 to +3.0); Calcium, Ionized 0.92 mmol/L (1.16-1.32); Chloride (ABG LAB) 103 mmol/L (98-106); Hemoglobin (Hb) 9.1 g/dL (13.1-17.2); Potassium - ABG Lab 4.49 mmol/L (3.70-5.30); Sodium 129.4 mmol/L (133-146); pH (venous) 7.31 (7.32-7.43)
--- NOTE | 2019-02-19 17:43 | EKG ---
Test Reason : POST CABG Blood Pressure : / mmHG Vent. Rate : 081 BPM Atrial Rate : 081 BPM P-R Int : 144 ms QRS Dur : 078 ms QT Int : 476 ms P-R-T Axes : 068 -23 126 degrees QTc Int : 552 ms Normal sinus rhythm Prolonged QT Abnormal ECG When compared with ECG of 14-FEB-2019 00:40, (Unconfirmed) ST now depressed in Anterior leads T wave inversion now evident in Anterolateral leads QT has lengthened Confirmed by CHE GARCIA ([id number]) on 02/19/2019 5:43:13 PM Referred By: JOHANN Confirmed By:CHE GARCIA
[2019-02-20 08:04] LABS: Puncture Site ALINE
[2019-02-20 08:04] LABS: Puncture Site ALINE
[2019-02-20 08:05] LABS: Puncture Site ALINE
[2019-02-20 08:05] LABS: Puncture Site ALINE
== END 2019-02-19 10:53 | disposition home or self-care (01) | DRG 234 ==
LOC: ERS 00:31 → 2SW 02:50 → OBSVTOIN 02:50 → CCU 02-15 10:32 → 2NO 02-16 14:57
PROVIDERS: ADMIT Hospitalist; ATTEND Hospitalist
PROC: 4A023N7 Measurement of Cardiac Sampling and Pressure, Left Heart, Percutaneous Approach (ICD-10-PCS; 2019-02-14)
PROC: B2111ZZ Fluoroscopy of Multiple Coronary Arteries using Low Osmolar Contrast (ICD-10-PCS; 2019-02-14)
PROC: B2151ZZ Fluoroscopy of Left Heart using Low Osmolar Contrast (ICD-10-PCS; 2019-02-14)
PROC: 02100Z9 Bypass Coronary Artery, One Artery from Left Internal Mammary, Open Approach (ICD-10-PCS; principal; 2019-02-15)
PROC: 021009W Bypass Coronary Artery, One Artery from Aorta with Autologous Venous Tissue, Open Approach (ICD-10-PCS; 2019-02-15)
PROC: 02100AW Bypass Coronary Artery, One Artery from Aorta with Autologous Arterial Tissue, Open Approach (ICD-10-PCS; 2019-02-15)
PROC: 03BC0ZZ Excision of Left Radial Artery, Open Approach (ICD-10-PCS; 2019-02-15)
PROC: 06BQ0ZZ Excision of Left Saphenous Vein, Open Approach (ICD-10-PCS; 2019-02-15)
PROC: 5A1221Z Performance of Cardiac Output, Continuous (ICD-10-PCS; 2019-02-15)
DX: I21.4 Non-ST elevation (NSTEMI) myocardial infarction (principal); I25.10 Atherosclerotic heart disease of native coronary artery without angina pectoris; R73.9 Hyperglycemia, unspecified; E78.5 Hyperlipidemia, unspecified; Z87.891 Personal history of nicotine dependence
CPT/HCPCS: 36415; 36416; 36430; 71045; 80048; 80053; 82550; 82553; 82805; 83036; 83690; 83735; 84484; 85025; 85610; 85730; 86850; 86900; 86901; 93005; 93010; 93306; 93454; 93458; 93798; 94002; 94760; 96360; 96361; 99152; 99153; C1769; C1887; J0670; J1100; J1642; J1644; J1650; J1885; J2001; J2250; J2405; J2440; J2704; J2720; J3010; J3370; J3475; J3480; J3490; J7050; J7620; P9045; Q9967; S0017; S0028